=== PATIENT | female | born 2000 | race Caucasian/White ===

== ENCOUNTER → 2023-01-24 | Outpatient (CLI) | payer BC ==
[~2023-01-24] MED LIST: ELIQUIS 5MG PO
[2023-01-24 17:03] LABS: INR 5.6 (0.8-3.0)
[2023-01-24 17:04] LABS: PROTHROMBIN TIME 65.9 SECONDS (9.7-12.8)
== END ==
LOC: COL.LAB 16:03
PROVIDERS: Family Medicine
DX: I82.401 Acute embolism and thrombosis of unspecified deep veins of right lower extremity (principal)

== ENCOUNTER → 2023-01-26 | Outpatient (CLI) | payer BC ==
[2023-01-26 09:42] LABS: INR 2.5 (0.8-3.0); PROTHROMBIN TIME 28.4 SECONDS (9.7-12.8)
== END ==
LOC: COL.LAB 08:57
PROVIDERS: Family Medicine
DX: I82.401 Acute embolism and thrombosis of unspecified deep veins of right lower extremity (principal)

== ENCOUNTER → 2023-02-06 | Outpatient (CLI) | payer BC ==
[2023-02-06 14:25] LABS: INR 1.8 (0.8-3.0); PROTHROMBIN TIME 20.8 SECONDS (9.7-12.8)
== END ==
LOC: COL.LAB 13:37
PROVIDERS: Family Medicine
DX: I82.401 Acute embolism and thrombosis of unspecified deep veins of right lower extremity (principal)

== ENCOUNTER 2023-06-06 09:33 | Outpatient (RCR) | payer BC ==
[2023-05-22 12:55] LABS: INR 2.1 (0.8-3.0); PROTHROMBIN TIME 21.9 SECONDS (9.7-12.8)
[2023-05-30 09:12] LABS: INR 3.7 (0.8-3.0); PROTHROMBIN TIME 39.2 SECONDS (9.7-12.8)
[2023-06-06 10:04] LABS: INR 2.1 (0.8-3.0); PROTHROMBIN TIME 22.8 SECONDS (9.7-12.8)
== END 2023-06-08 | disposition home or self-care (01) ==
LOC: COL.LAB
PROVIDERS: Hospitalist
DX: I82.401 Acute embolism and thrombosis of unspecified deep veins of right lower extremity (principal)

== ENCOUNTER 2023-06-27 12:48 | Outpatient (RCR) | payer BC ==
[2023-06-27 10:04] LABS: INR 1.8 (0.8-3.0); PROTHROMBIN TIME 19.1 SECONDS (9.7-12.8)
== END 2023-07-08 | disposition home or self-care (01) ==
LOC: COL.LAB
PROVIDERS: Hospitalist
DX: I82.401 Acute embolism and thrombosis of unspecified deep veins of right lower extremity (principal)

== ENCOUNTER → 2023-11-01 | Outpatient (CLI) | payer BC ==
[2023-11-01 11:14] LABS: INR 3.4 (0.8-3.0); PROTHROMBIN TIME 36.5 SECONDS (9.7-12.8)
== END ==
LOC: COL.LAB 10:37
PROVIDERS: Hospitalist
DX: I82.401 Acute embolism and thrombosis of unspecified deep veins of right lower extremity (principal)